=== PATIENT | female | born 1950 | race Caucasian/White ===

== ENCOUNTER 2023-12-31 21:40 | Emergency (ER) | payer MEDICARE, SELFPAY ==
--- NOTE | ~2023-12-31 | XR_ITS ---
XR knee RT min 4V 12/31/2023 22:36 Indication: Right knee pain Procedure: 5 views right knee Comparison: No prior studies for comparison. Findings: No fracture or traumatic malalignment. There is chondrocalcinosis. No significant joint eff usion. Mild tricompartment osteoarthritis. Osteopenia. Impression: 1: No acute fracture. Reviewed, dictated and finalized at location A. Impression: 1: No acute fracture.
--- NOTE | ~2023-12-31 | XR_ITS ---
XR hip RT 2V w AP pelvis 12/31/2023 22:36 Indication: Right hip pain after fall Procedure: AP pelvis and 2 views right hip Comparison: No prior studies for comparison. Findings: There is dynamic compression screw and intramedullary ysabel transfixing a right transcervical femoral fracture with medial displacement. There is postoperative changes of the left hip as well. O steopenia. No significant soft tissue abnormality. Impression: 1: Status post intraoperative fixation of the right femoral transcervical fracture with dynamic compr ession screw. No prior studies are available to assess for interval change. Reviewed, dictated and finalized at location A. Impression: 1: Status post intraoperative fixation of the right femoral transcervical fract ure with dynamic compression screw. No prior studies are available to assess fo r interval change.
--- NOTE | ~2023-12-31 | XR_ITS ---
XR ankle RT min 3V 12/31/2023 22:36 Indication: Right ankle pain after fall Procedure: 4 views right ankle Comparison: No prior studies for comparison. Findings: No fracture, subluxation or dislocation. There is osteopenia. Ankle mortise intact. Talar d ome is normal. Impression: 1: No acute fracture. Reviewed, dictated and finalized at location A. Impression: 1: No acute fracture.
[2023-12-31 21:42] VITALS: BP 189/103; PULSE 85; RESP 20; TEMP 36.6; O2SAT 98
--- NOTE | 2023-12-31 22:20 | ED.FALL ---
HPI - Fall General Chief Complaint: Fall Stated Complaint: glf rt side - witnessed Time Seen by Provider: 12/31/23 21:52 Source: patient, EMS and other (Nurse at facility reports she witnessed her fall. Patient fell onto her right side. No head injury or loss of consciousness) Mode of arrival: EMS Limitations: no limitations History of Present Illness HPI Narrative: This is a 73 year old female that presents to the ER for right hip pain after a fall today. Facility reports this was a witnessed fall. She stood up out of her wheelchair and attempted to ambulate. She is not supposed to me ambulatory yet due to recent hip fracture. She fell onto her right hip. Reports right hip, knee and ankle pain. She did not hit her head or lose consciousness. Related Data Allergies Allergy/AdvReac Type Severity Reaction Status Date / Time Sulfa (Sulfonamide Allergy Unknown Verified 08/31/13 07:06 Antibiotics) Review of Systems Review of Systems: CONSTITUTIONAL: Denies fever GASTROINTESTINAL: Denies vomiting MUSCULOSKELETAL: Reports joint pain, and myalgia. All systems reviewed & are unremarkable except as noted in HPI and below [facility] Past Medical History Medical History (Updated 01/01/24 @ 00:30 by Bryanna Enriquez PA-C) Hip fracture, right History of atrial fibrillation History of hyperlipidemia History of hypertension Social History Social History (Updated 12/31/23 @ 22:24 by Bryanna Enriquez PA-C) Substance use: never Exam Narrative: GENERAL: Elderly, thin, and in no acute distress. HEAD: Normocephalic, atraumatic. EYES: PERRLA and EOMI. ENT: Nares clear, no rhinorrhea or epistaxis. Mucous membranes moist. Oropharynx without tonsillar hypertrophy exudate or other lesions. Bilateral TMs pearly [place] non-bulging NECK: Supple. No adenopathy or masses. No midline spinal tenderness CHEST: Clear to auscultation. No respiratory distress. No wheezes rales or rhonchi HEART: Regular rate and rhythm. No murmur heard. Normal peripheral pulses. ABDOMEN: Soft, nontender, nondistended, normal active bowel sounds. EXTREMITIES: Normal range of motion. No edema or obvious deformity. SKIN: Warm, dry, no rash. NEURO: No focal deficits. Alert and oriented x3. CN II-XII grossly intact PSYCH: Normal mood and affect Course Vital Signs Vital signs: Vital Signs Temperature 97.9 F 12/31/23 21:42 Pulse Rate 85 12/31/23 21:42 Respiratory Rate 20 12/31/23 21:42 Blood Pressure 189/103 H 12/31/23 21:42 Pulse Oximetry 98 12/31/23 21:42 Oxygen Delivery Room Air 12/31/23 21:42 Temperature 97.9 F 12/31/23 21:42 Pulse Rate 85 12/31/23 22:59 Respiratory Rate 16 12/31/23 22:59 Blood Pressure 162/92 H 12/31/23 22:59 Pulse Oximetry 100 12/31/23 22:59 Oxygen Delivery Room Air 12/31/23 21:42 MDM - Fall MDM Narrative Medical decision making narrative: Patient presents to the emergency department after a witnessed fall at her facility with right knee, ankle and hip pain. No head injury or loss of consciousness. Patient is neurovascularly intact. Right knee and ankle x-rays are without acute osseous abnormalities. Patient's right hip/pelvis x-ray shows hardware intact without obvious acute fracture. Instructed to have continued follow-up with her orthopedic doctor. She was given warnings to return to the ER Differential Diagnosis Differential diagnosis: Likely other (hip fracture, ankle fracture, knee sprain) Imaging Data Radiologist's impression: Right ankle x-ray: No acute fracture or dislocation Right knee x-ray: No acute fracture or dislocation. No significant joint effusion Right hip/pelvis: Postsurgical and posttraumatic changes to the bilateral hips with placement of femoral intramedullary rods and interlocking screws within the femoral head/neck Critical Care Time Critical Care Time Critical Care Time: No Discharge Plan Discharge Clinical Impression: Fall Qualifiers: Encounter type
[2023-12-31 22:59] VITALS: BP 162/92; PULSE 85; RESP 16; O2SAT 100
[2024-01-01] MEDS: ACETAMINOPHEN 500 MG TABLET 1000 MG PO (01:20)
[2024-01-01 01:22] VITALS: BP 159/89; PULSE 86; RESP 20; O2SAT 99
[2024-01-01 02:34] VITALS: BP 156/82; PULSE 92; RESP 14; O2SAT 97
== END 2024-01-01 04:39 ==
PROVIDERS: Emergency Provider Physician Assistant
DX: S79.911A Unspecified injury of right hip, initial encounter (principal); S89.91XA Unspecified injury of right lower leg, initial encounter; S99.911A Unspecified injury of right ankle, initial encounter; I48.91 Unspecified atrial fibrillation; I10 Essential (primary) hypertension; E78.5 Hyperlipidemia, unspecified; W18.39XA Other fall on same level, initial encounter
CPT/HCPCS: 73502; 73564; 73610; 99284; A9270